=== PATIENT | male | born 1950 | race Caucasian/White ===

== ENCOUNTER 2017-04-20 14:06 | Outpatient (CLI) ==
[2014-04-15 15:42] VITALS: BMI 26.2
[2017-04-20 14:48] LABS: BASOPHILS # (AUTO) 0.1 K/uL (0-0.2); BASOPHILS % (AUTO) 0.6 % (0.0-3.0); EOSINOPHILS # (AUTO) 0.1 K/ul (0.0-0.7); EOSINOPHILS % (AUTO) 1.6 % (0.0-7.0); HEMATOCRIT 44.9 % (42.0-52.0); HEMOGLOBIN 16.3 g/dl (14.0-18.0); IMMATURE GRANULOCYTE % (AUTO) 0.4 % (0.0-5.0); LYMPHOCYTES # (AUTO) 2.1 K/uL (0.60-3.4); LYMPHOCYTES % (AUTO) 26.6 (10.0-50.0); MEAN CORPUSCULAR HEMOGLOBIN 32.7 pg (27.0-31.0); MEAN CORPUSCULAR HGB CONC 36.3 (31.8-35.4); MEAN CORPUSCULAR VOLUME 90.2 fl (80.0-94.0); MONOCYTES % (AUTO) 12.1 (0-10); NEUTROPHILS # (AUTO) 4.6 K/ul (2.0-6.9); NEUTROPHILS % (AUTO) 58.7; PLATELET COUNT 196 10^3/uL (140-440); RED BLOOD COUNT 4.98 10^6/ul (4.70-6.10); WHITE BLOOD COUNT 7.92 K/ul (4.2-10.2)
[2017-04-20 15:41] LABS: ALBUMIN 4.2 g/dL (3.4-5.0); ALBUMIN/GLOBULIN RATIO 1.17; ANION GAP 14.3; BILIRUBIN,TOTAL 0.83 mg/dL (0.00-1.20); BUN/CREATININE RATIO 13.68; CALCIUM 10.3 mg/dL (8.2-10.2); CHOL/HDL RATIO 5.9 (4.5-6.4); CREATININE 0.95 mg/dL (0.60-1.10); POTASSIUM 4.3 mmol/L (3.5-5.1); TOTAL PROTEIN 7.8 g/dL (5.8-8.1)
== END 2017-04-20 14:07 | disposition home or self-care (01) ==
LOC: LAB 14:06
PROVIDERS: ATTEND Internal Medicine
DX: E78.5 Hyperlipidemia, unspecified (principal); B19.20 Unspecified viral hepatitis C without hepatic coma; I10 Essential (primary) hypertension; C61 Malignant neoplasm of prostate; I73.9 Peripheral vascular disease, unspecified; Z79.899 Other long term (current) drug therapy; Z12.5 Encounter for screening for malignant neoplasm of prostate
CPT/HCPCS: 36415; 80053; 80061; 82607; 83036; 84443; 85025; 86803

== ENCOUNTER 2017-08-07 15:35 | Outpatient (CLI) ==
[2014-04-15 15:42] VITALS: BMI 26.2
== END 2017-08-07 15:36 | disposition home or self-care (01) ==
LOC: LAB 15:35
PROVIDERS: ATTEND Internal Medicine
DX: Z86.19 Personal history of other infectious and parasitic diseases (principal)
CPT/HCPCS: 36415; 87522

== ENCOUNTER 2024-03-25 17:42 | Observation (INO) ==
--- NOTE | 2024-03-25 18:57 | ED.PDOC ---
General ED Provider: Dr. BERNARD BORJAS MD Chief Complaint: Dizziness Stated Complaint: Patient is a 73-year-old male that reported to the emergency department with a 2-day history of dizziness. Patient stated that when he gets up or he looks a certain way he gets very dizzy. When asked if the patient feels like the room is spinning or he feels lightheaded he stated that he feels both. Patient stated that he has not lost consciousness or fallen however he does have to sit back down to get over his dizziness. Patient stated that he is never had this before. Patient states that he has no history of cardiovascular disease other than hypertension. Patient states that he does smoke half pack of cigarettes daily. Patient denies any recent head trauma. Patient denies any chest pain, shortness of breath, nausea, vomiting, diarrhea, headache, fever, sore throat, or any other acute symptoms not currently mentioned in HPI. Time Seen by Provider: 03/25/24 17:52 Mode of Arrival: Walk-In Information Source: Patient and Family Exam Limitations: No limitations Primary Care Provider: LUÍS BURR MD Nursing and Triage Documentation Reviewed and Agree: Yes Does Patient Take Opioids?: No Is Patient Opioid Naive?: No What is Opioid Naive?: *Opioid Naive implies the patient is not already taking opioids or not chronically receiving opioids on a daily basis. *PRN dosing is not "usually" associated with tolerance. *Patients are at higher risk of over-sedation and aspiration. Is Patient Opioid Tolerant?: No What is Opioid Tolerant?: *Opioid Tolerance implies less than the expected response to an opioid. *Acquired tolerance is defined by the patient taking 60mg of oral morphine daily (or equianalgesic dose of another opioid) for 1 week or more. *Often associated with chronic pain. *May take more than usual dose to achieve desired pain control. Review of Systems Review Of Systems Constitutional: Reports No symptoms Eyes: Reports No symptoms Ears, Nose, Mouth, Throat: Reports No symptoms Respiratory: Reports No symptoms (No interval changes) Cardiac: Reports Other (Dizziness) GI: Reports No symptoms : Reports No symptoms Musculoskeletal: Reports No symptoms Skin: Reports No symptoms Neurological: Reports No symptoms Endocrine: Reports No symptoms Hematologic/Lymphatic: Reports No symptoms All Other Systems: Reviewed and Negative [facility] Family History Mother Cardiac disease, Onset Age: 84 Social History Smoking and tobacco status: Current every day smoker Tobacco type: cigarettes Smoking packs per day: 0.5 Alcohol intake: current Alcohol intake frequency: a few times a month Substance use type: does not use Cathryn/adventism: BUDDHISM Special cathryn needs: No Agree to transfusion: Yes Adopted: No Caregiver/support person: No Foster care: No Household members: spouse Marital status: S SINGLE Lives independently: Yes Daycare: no daycare Number of children: 1 Number of grandchildren: 0 Highest education level completed: some college, no degree service: No FPC: No Current occupational status: retired History of recent travel: No Do you think of yourself as: straight/heterosexual Current gender identity: male Seatbelt use: always Drives intoxicated or rides with intoxicated fuel 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 Water heater temperature set < 120 degrees: Yes Working smoke detector in home: Yes Fire extinguisher in home: Yes Carbon monoxide detector in home: Yes Surgical History History of prostatectomy 2003 Z90.79 - Acquired absence of other genital organ(s) (ICD-10) Placement of stent in coronary artery 2013 1 stent Physical Exam Physical Exam Appearance: Reports Well-appearing, No pain distress and Well-nourished Ill-appearing: None Pain Distress: None Eyes: Reports FRANCINE, EOMI and Conjunctiva clear ENT: Reports Not Examined Neck: Supple Respiratory: Reports Airway patent, Breath sounds clear, Breath sounds equal and Respirations nonlabored Cardiovascular: Reports RRR, Pulses normal, No rub and No murmur GI/: Reports Soft, Nontender, No masses and Bowel sounds normal Musculoskeletal: Reports Normal strength, ROM intact and No edema Skin: Reports Warm, Dry and Normal color Neurological: Reports Sensation intact, Motor intact, Cranial nerves intact, Alert and Oriented Psychiatric: Reports Affect appropriate and Mood appropriate Course Course 03/25/24 19:05 03/25/24 19:05 Orders, Labs, Meds: Lab Review 03/25/24 03/25/24 19:02 19:05 WBC 5.87 RBC 4.58 L Hgb 14.5 Hct 42.9 MCV 93.7 MCH 31.7 H MCHC 33.8 RDW Coeff of Anabel 13.2 Plt Count 172 Immature Gran % (Auto) 0.5 Neut % (Auto) 62.8 Lymph % (Auto) 22.7 [place] % (Auto) 11.4 H Eos % (Auto) 2.4 Baso % (Auto) 0.2 Neut # (Auto) 3.7 Lymph # (Auto) 1.3 [place] # (Auto) 0.7 Eos # (Auto) 0.1 Baso # (Auto) 0.0 Immature Gran # (Auto) 0.0 Sodium 142.8 Potassium 4.24 Chloride 105.9 Carbon Dioxide 30.2 H Anion Gap 10.94 BUN 17.9 Creatinine 0.88 Estimated GFR (MDRD) 85.00 BUN/Creatinine Ratio 20.34 Glucose 120.2 H Lactic Acid 1.90 Calcium 10.40 H Total Bilirubin 0.37 AST 39.6 ALT 19.8 Alkaline Phosphatase 50.6 L Troponin I < 0.012 NT-Pro-B Natriuret Pep 167 Total Protein 7.70 Albumin 4.77 Globulin 2.93 Albumin/Globulin Ratio 1.62 Influ A Molecular Assay Negative by naat Influ B Molecular Assay Negative by naat SARS CoV-2 RNA Rapid JOHN Negative Orders Category Date Time Status EKG-(ED ONLY) Stat CARDIO 03/25/24 18:36 Completed ED PUMPER GAGER APPLIED .ONCE EMERGENCY 03/25/24 18:53 Active Orthostatic Vital Signs [ED ORTHOSTATIC VITAL SIGNS] . EMERGENCY 03/25/24 19:37 Active ONCE CBC W/ AUTO DIFF Stat LAB 03/25/24 19:05 Completed COMPREHENSIVE METABOLIC PANEL Stat LAB 03/25/24 19:05 Completed FLU A/B MOLECULAR Stat LAB 03/25/24 19:02 Completed LACTIC ACID Stat LAB 03/25/24 19:05 Completed NT-PROBNP(ED) Stat LAB 03/25/24 19:05 Completed SARS COV-2 RNA RAPID JOHN Stat LAB 03/25/24 19:02 Completed TROPONIN I Stat LAB 03/25/24 19:05 Completed CHEST, 1V AP ONLY Stat RADS 03/25/24 18:53 Taken Vital Signs: Temp Pulse Resp BP Pulse Ox 03/25/24 19:54 104/64 03/25/24 19:54 110/72 03/25/24 19:53 140/80 03/25/24 18:10 97.1 F L 66 20 112/60 98 ANTHONY Risk Score ANTHONY Risk Score: Risk Score Odds of by 30D 0 0.1 (0.1-0.2) 1 0.3 (0.2-0.3) 2 0.4 (0.3-0.5) 3 0.7 (0.6-0.9) 4 1.2 (1.0-1.5) 5 2.2 (1.9-2.6) 6 3.0 (2.5-3.6) 7 4.8 (3.8-6.1) Physician Progress Note: Patient is a 73-year-old male that reported to the emergency department with a 2-day history of dizziness. Patient stated that when he gets up or he looks a certain way he gets very dizzy. When asked if the patient feels like the room is spinning or he feels lightheaded he stated that he feels both. Patient stated that he has not lost consciousness or fallen however he does have to sit back down to get over his dizziness. Patient stated that he is never had this before. Patient states that he has no history of cardiovascular disease other than hypertension. Patient states that he does smoke half pack of cigarettes daily. Patient denies any recent head trauma. Patient denies any chest pain, shortness of breath, nausea, vomiting, diarrhea, headache, fever, sore throat, or any other acute symptoms not currently mentioned in HPI. -Will order EKG, chest x-ray, baseline labs and troponin. -EKG shows junctional rhythm with a rate of 54 bpm. Left axis deviation noted with a right incomplete bundle branch block. No acute ST elevations noted. This was interpreted by the ER physician. -Will order orthostatic vital signs. -Chest x-ray shows no acute cardiopulmonary disease. This was interpreted by the ER physician. -Troponin negative. CBC and CMP unremarkable. -Patient is orthostatic with blood pressure sitting 140/80, standing 110/72, laying down 104/64. -Due to patient's near syncopal episode we will contact hospitalist for admission. -(2009) spoke to hospitalist about the patient's near syncopal episode and current status. She has agreed to admit the patient for observation. Will place patient on telemetry. Discharge Plan Discharge Patient Disposition: PLACED OBSERVATION Discharge Problem: Near syncope Did you review [place] MEMBER OF TECHNICAL STAFF for ALL controlled substances?: Not Applicable ED Provider: BERNARD BORJAS Condition: Stable
[2024-03-25 19:13] LABS: BASOPHILS % (AUTO) 0.2 % (0.0-3.0); EOSINOPHILS # (AUTO) 0.1 K/ul (0.0-0.7); EOSINOPHILS % (AUTO) 2.4 % (0.0-7.0); HEMATOCRIT 42.9 % (42.0-52.0); HEMOGLOBIN 14.5 g/dl (14.0-18.0); IMMATURE GRANULOCYTE % (AUTO) 0.5 % (0.0-5.0); LYMPHOCYTES # (AUTO) 1.3 K/uL (0.60-3.4); LYMPHOCYTES % (AUTO) 22.7 (10.0-50.0); MEAN CORPUSCULAR HEMOGLOBIN 31.7 pg (27.0-31.0); MEAN CORPUSCULAR HGB CONC 33.8 (31.8-35.4); MEAN CORPUSCULAR VOLUME 93.7 fl (80.0-94.0); MONOCYTES # (AUTO) 0.7 K/uL (0.4-2.0); MONOCYTES % (AUTO) 11.4 (0-10); NEUTROPHILS # (AUTO) 3.7 K/ul (2.0-6.9); NEUTROPHILS % (AUTO) 62.8 % (42.2-75.2); PLATELET COUNT 172 10^3/uL (140-440); RDW COEFFICIENT OF VARIATION 13.2 % (11.6-14.8); RED BLOOD COUNT 4.58 10^6/ul (4.70-6.10); WHITE BLOOD COUNT 5.87 K/ul (4.2-10.2)
[2024-03-25 19:23] LABS: ALANINE AMINOTRANSFERASE 19.8 U/L (0-50); ALBUMIN 4.77 g/dL (3.5-5.0); ALKALINE PHOSPHATASE 50.6 U/L (56-119); ASPARTATE AMINO TRANSFERASE 39.6 U/L (17-59); BILIRUBIN,TOTAL 0.37 mg/dL (0.2-1.3); BLOOD UREA NITROGEN 17.9 mg/dL (9-20); CARBON DIOXIDE 30.2 mmol/L (22-30.0); CHLORIDE 105.9 mmol/L (98-107); CREATININE 0.88 mg/dL (0.60-1.10); GLUCOSE 120.2 mg/dL (74-106); POTASSIUM 4.24 mmol/L (3.5-5.1); SODIUM 142.8 mmol/L (134.5-145)
[2024-03-25 19:35] LABS: MOLECULAR FLU A NEGATIVE BY NAAT (NEGATIVE); MOLECULAR FLU B NEGATIVE BY NAAT (NEGATIVE); SARS COV-2 RNA RAPID NAAT NEGATIVE (NEGATIVE)
[2024-03-25 19:35] LABS: TROPONIN I < 0.012 ng/ml (0.0000-0.120)
[2024-03-25] MEDS ORDERED: TYLENOL PO PRN (20:34)
--- NOTE | 2024-03-25 20:52 | DI ---
EXAM: CHEST X-RAY ONE VIEW. HISTORY: Dizzy. COMPARISON: 04/28/2014 chest x-ray. FINDINGS: Heart is upper limits normal and pulmonary vascularity within normal limits. The lungs ar e satisfactory inflated with no active pulmonary infiltrate. Chronic appearing increased interstitia l lung markings. Tortuosity of the thoracic aorta. No change in the osseous structures. IMPRESSION: Evidence of chronic lung findings with no active cardiac or pulmonary process.
[2024-03-25] MEDS ORDERED: NON-FORMULARY MEDICATION (Melatonin 5 mg tablet) PO SCH (21:00)
[2024-03-25 22:11] VITALS: BMI 22.3
[2024-03-25] MEDS: LACTATED RINGERS 1,000 ML IV SCH (22:18)
[2024-03-25] MEDS: AMBIEN PO SCH ×2 (23:28→23:29)
[2024-03-25] MEDS: MELATONIN PO SCH (23:29)
[2024-03-25] MEDS: NICODERM 21 MG TD SCH (23:29)
[2024-03-26 05:18] LABS: BASOPHILS % (AUTO) 0.4 % (0.0-3.0); EOSINOPHILS # (AUTO) 0.2 K/ul (0.0-0.7); EOSINOPHILS % (AUTO) 4.2 % (0.0-7.0); HEMATOCRIT 36.8 % (42.0-52.0); HEMOGLOBIN 12.5 g/dl (14.0-18.0); IMMATURE GRANULOCYTE % (AUTO) 0.4 % (0.0-5.0); LYMPHOCYTES # (AUTO) 1.5 K/uL (0.60-3.4); MEAN CORPUSCULAR HEMOGLOBIN 31.3 pg (27.0-31.0); MEAN CORPUSCULAR VOLUME 92.2 fl (80.0-94.0); MONOCYTES # (AUTO) 0.5 K/uL (0.4-2.0); MONOCYTES % (AUTO) 10.1 (0-10); NEUTROPHILS # (AUTO) 2.9 K/ul (2.0-6.9); NEUTROPHILS % (AUTO) 55.9 % (42.2-75.2); PLATELET COUNT 143 10^3/uL (140-440); RDW COEFFICIENT OF VARIATION 13.2 % (11.6-14.8); RED BLOOD COUNT 3.99 10^6/ul (4.70-6.10); WHITE BLOOD COUNT 5.24 K/ul (4.2-10.2)
[2024-03-26 05:30] LABS: ALANINE AMINOTRANSFERASE 17.4 U/L (0-50); ALBUMIN 3.79 g/dL (3.5-5.0); ALKALINE PHOSPHATASE 47.2 U/L (56-119); ASPARTATE AMINO TRANSFERASE 25.2 U/L (17-59); BILIRUBIN,TOTAL 0.68 mg/dL (0.2-1.3); BLOOD UREA NITROGEN 12.7 mg/dL (9-20); CALCIUM 9.22 mg/dL (8.4-10.2); CARBON DIOXIDE 27.2 mmol/L (22-30.0); CHLORIDE 106.1 mmol/L (98-107); CREATININE 0.69 mg/dL (0.60-1.10); GLUCOSE 90.2 mg/dL (74-106); MAGNESIUM 1.9 mg/dL (1.6-2.3); POTASSIUM 3.25 mmol/L (3.5-5.1); SODIUM 139.3 mmol/L (134.5-145); TOTAL PROTEIN 6.26 g/dL (6.3-8.2)
[2024-03-26] MEDS: VITAMIN D PO SCH (08:42)
[2024-03-26] MEDS: MICRO-K CAP PO SCH (08:46)
[2024-03-26] MEDS: K-DUR PO ONE (08:47)
[2024-03-26] MEDS: ASPIRIN EC PO SCH (08:49)
[2024-03-26] MEDS: ANTIVERT PO PRN (09:11)
[2024-03-26] MEDS: NORVASC PO SCH (09:14)
[2024-03-26] MEDS: ZESTRIL PO SCH (09:14)
[2024-03-26] MEDS: ZETIA PO SCH (09:30)
[2024-03-26] MEDS: NON-FORMULARY MEDICATION (Azelastine 0.05 % drops) EACHEYE SCH (11:19)
--- NOTE | 2024-03-26 12:20 | ECHO2D ---
Date of Exam: 03/26/2024 Ordering Physician: DR. BURR Room #: 115 Reason for Echo: NEAR SYNCOPE, CHRONIC OBSTRUCTIVE PULMONARY DISEASE, PERIPHERAL ARTERY DISEASE, DIZZINESS M-Mode Normal Adult Results LV Dimensions Normal Adult Results AoV Opening excursions >1.6 >1.6 LVEDD-base- 3.5-5.8 5.4 Ao root dimensions 2.0-3.7 3.9 LVESD-base- 3.1-4.6 L. Atrium dimensions 1.9-3.8 4.7 Post. Wall thickness 0.8-1.1 1.3 IV septum (thickness) 0.7-1.2 1.3 Post. Wall excursion 0.72-1.3 NORMAL Septal motion NORMAL Systolic motion R. Ventricular cavity 1.5-2.0 3.5 LVEF 60% 70% Paradoxical septal wall motion NORMAL 2-D : 2-D M Mode Echocardiogram was performed using apical four chamber and left parasternal long and short axis views. ENLARGED LEFT ATRIAL AND RIGHT VENTRICLE CAVITIES. NORMAL LEFT VENTRICLE SIZE AND LEFT VENTRICULAR CONTRACTILITY. VALVES NORMAL. NO EFFUSION. NO THROMBUS. M-MODE: MV: NORMAL AV: CALCIFIC AORTIC VALVES - NO STENOSIS. TV: NORMAL PV: NORMAL CHAMBER SIZE: ENLARGED RIGHT VENTRICLE AND LEFT ATRIAL CAVITIES. WALL MOTION: NORMAL PERICARDIUM: NORMAL INTERPRETATION: 1. LEFT VENTRICULAR HYPERTROPHY WITH ENLARGED LEFT ATRIAL CAVITY. 2. ENLARGED RIGHT VENTRICLE CAVITY. 3. CALCIFIC AORTIC VALVES - NO STENOSIS. 4. NORMAL TRICUSPID VALVE, PULMONARY VALVE, AND MITRAL VALVES. 5. NORMAL LEFT VENTRICLE SIZE AND LEFT VENTRICULAR CONTRACTILITY. MTDD
--- NOTE | 2024-03-26 14:36 | US ---
EXAM: BILATERAL CAROTID DOPPLER 03/26/2024 HISTORY: Dizziness COMPARISON: None. FINDINGS: Duplex ultrasound including garcia scale, color and spectral Doppler has been performed. Ant egrade flow is present within the carotid and vertebral arteries. Bilateral atherosclerotic plaque m ost prominent at the carotid bulbs and proximal internal carotid arteries Peak systolic velocity right common carotid artery 78 cm/sec. Right internal carotid artery 92 cm/se c. The ratio is 1.2. Peak systolic velocity left common carotid artery 55 cm/sec. Left internal ca rotid artery 71 cm/sec. This ratio is 1.3. IMPRESSION: 1. Antegrade flow of the carotid and vertebral arteries 2. Bilateral atherosclerotic plaque. 3. No evidence of hemodynamically significant internal carotid stenosis.
--- NOTE | 2024-03-26 14:40 | PCM.SS ---
Provider Provider: ALVINO CULLEN PA-C, [facility] (Formerly [facility])ist Group Admission Date Admission Date: 03/25/24 Discharge Date Discharge Date: 03/26/24 Primary Care Physician Primary Care Physician: LUÍS LOERA MD Chief Complaint Reason For Visit: DIZZINESS FOR 2 DAYS, DOESNT FEEL RIGHT History of Present Illness History of Present Illness: Admitted 03/25/24 20:57, this 73 year old /WHITE/M with pmhx of hypertension, PAD, insomnia, CAD who presents for 2-3 day history of dizziness. He states it comes and goes, changes in intensity. Sometimes associated with change in position but not always. No vision changes, chest pain, sob. Has not had dizziness in the past. No recent medication changes. No unilateral weakness, trouble speaking, etc. Labs unremarkable. Vitals stable. Patient admitted to med surg for further monitoring. Patient noted to be mildly bradycardic on telemetry, otherwise no arrhythmias noted overnight. He does dip down as low as high 30s while sleeping. But has been regularly in 50s-60s while awake. Orthostatics negative this morning. No dizziness associated with standing. He had a moment of some transient dizziness which was correlated on telemetry, no bradycardia or anything noted at that time. Echo unremarkable. Carotid US did not show any significant stenosis. No clinical signs of a PE. No medications that would be contributing. Discussed with Dr. Venessa Loera, patients pcp/mva reactor operator head. Will discharge on holter monitor, he will order event monitor after if necessary. Will discharge on meclizine. Fall precautions discussed. Pt agrees to plan of care. Discussed potential of vestibular rehab as an option outpatient if needed. [facility] Surgical History History of prostatectomy 2003 Z90.79 - Acquired absence of other genital organ(s) (ICD-10) Placement of stent in coronary artery 2013 1 stent Family History Mother Cardiac disease, Onset Age: 84 Social History Smoking and tobacco status: Current every day smoker Tobacco type: cigarettes Smoking packs per day: 0.5 Alcohol intake: current Alcohol intake frequency: a few times a month Substance use type: does not use Cathryn/rastafari: JEWISH Special cathryn needs: No Agree to transfusion: Yes Adopted: No Caregiver/support person: No Foster care: No Household members: spouse Marital status: S SINGLE Lives independently: Yes Daycare: no daycare Number of children: 1 Number of grandchildren: 0 Highest education level completed: some college, no degree service: No halfway: No Current occupational status: retired History of recent travel: No Do you think of yourself as: straight/heterosexual Current gender identity: male Seatbelt use: always Drives intoxicated or rides with 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 Water heater temperature set < 120 degrees: Yes Working smoke detector in home: Yes Fire extinguisher in home: Yes Carbon monoxide detector in home: Yes Medications Mecications: Medications at Discharge (Home Meds & RX) aspirin 81 mg tablet,delayed release (Aspir-Low) 81 mg PO DAILY 04/07/14 multivitamin 1 cap PO DAILY 04/15/14 azelastine 0.05 % eye drops 1 drp BOTHEYES BID 10/25/22 fish, borage, flaxseed oils-omega 3,6,9 comb no.1 1,200 mg capsule ([place] 3-6-9) 2,400 cap PO BID 02/27/23 melatonin 5 mg tablet 5 mg PO QHS #30 tabs 02/27/23 zolpidem 10 mg tablet 12.5 mg (1.25 x 10 mg) PO BEDTIME #30 tabs 02/27/23 soluble corn fiber 5 gram oral powder packet (FiberCel) 1 g PO DAILY 05/04/23 hydrochlorothiazide 12.5 mg capsule 12.5 mg PO DAILY #90 caps 10/30/23 potassium chloride 10 mEq capsule,extended release 10 meq PO QDAY #30 caps 11/06/23 amlodipine 10 mg tablet See Rx Instructions .Route .COMPLEX #90 tabs 12/11/23 lisinopril 20 mg tablet See Rx Instructions .Route .COMPLEX #90 tabs 01/08/24 ezetimibe 10 mg tablet See Rx Instructions .Route .COMPLEX #45 tabs 02/12/24 cholecalciferol (vitamin D3) 125 mcg (5,000 unit) capsule 125 mcg PO QDAY 03/04/24 Allergies Allergies Allergy/AdvReac Type Severity Reaction Status Date / Time Penicillins Allergy Severe Anaphylaxis Verified 03/25/24 18:30 Review of Systems Constitutional: Denies Fever or Weakness Head: Reports Normocephalic and Atraumatic Eyes: Denies Blurred vision, Double-vision or Vision Changes Ears: Denies Pain or Drainage Throat: Denies Sore Throat or Difficulty Swallowing Cardiovascular: Denies Chest pain, Chest Pressure or Edema Respiratory: Denies Cough or Shortness of air Gastrointestinal: Denies Nausea, Vomiting, Diarrhea, Abdominal pain or Melena Genitourinary: Denies Dysuria or Hematuria Neurological: Reports Dizziness; Denies Headache, Syncope, Weakness, Speech difficulty or Problems with walking Physical Examination Appearance: Positive No Apparent Distress and Alert and Oriented x3 Head: Positive Normocephalic and Atraumatic Eyes: Positive FRANCINE Neck: Positive Supple, Non-Tender, Trachea Midline and No Carotid Bruits Heart: Positive RRR Respiratory: Positive Airway patent, Breath Sounds Clear, Bilaterally and Respirations Nonlabored GI/: Positive Soft, Nontender, Bowel sounds normal and No Distention Extremities: Negative Edema Neurological: Positive Cranial nerves intact, Alert and Oriented Psychiatric: Positive Normal Judgement, Normal Insight, Affect Appropriate and Mood Appropriate Vital Signs (Last 4 Hours) Vital Signs Last 4 Hours: Vital Signs: Last 4 Hours 03/26/24 11:00 03/26/24 12:00 03/26/24 13:00 Oxygen Delivery Method Room Air Room Air Telemetry Type Remote Telemetry Telemetry Monitoring Continues Telemetry Heart Rate 54 L EKG MI Interval 0.24 H EKG QRS Interval 0.06 Telemetry Strip Reading Sinus Facundo with 1st degree AVB. Labs This Visit Labs This Visit: Labs This Visit 03/25/24 03/25/24 03/26/24 19:02 19:05 05:02 WBC 5.87 5.24 RBC 4.58 L 3.99 L Hgb 14.5 12.5 L Hct 42.9 36.8 L D MCV 93.7 92.2 MCH 31.7 H 31.3 H MCHC 33.8 34.0 RDW Coeff of Anabel 13.2 13.2 Plt Count 172 143 Immature Gran % (Auto) 0.5 0.4 Neut % (Auto) 62.8 55.9 Lymph % (Auto) 22.7 29.0 [place] % (Auto) 11.4 H 10.1 H Eos % (Auto) 2.4 4.2 Baso % (Auto) 0.2 0.4 Neut # (Auto) 3.7 2.9 Lymph # (Auto) 1.3 1.5 [place] # (Auto) 0.7 0.5 Eos # (Auto) 0.1 0.2 Baso # (Auto) 0.0 0.0 Immature Gran # (Auto) 0.0 0.0 Sodium 142.8 139.3 Potassium 4.24 3.25 L Chloride 105.9 106.1 Carbon Dioxide 30.2 H 27.2 Anion Gap 10.94 9.25 BUN 17.9 12.7 Creatinine 0.88 0.69 Estimated GFR (MDRD) 85.00 112.00 BUN/Creatinine Ratio 20.34 18.40 Glucose 120.2 H 90.2 Lactic Acid 1.90 Calcium 10.40 H 9.22 Magnesium 1.90 Total Bilirubin 0.37 0.68 AST 39.6 25.2 ALT 19.8 17.4 Alkaline Phosphatase 50.6 L 47.2 L Troponin I < 0.012 NT-Pro-B Natriuret Pep 167 Total Protein 7.70 6.26 L Albumin 4.77 3.79 Globulin 2.93 2.47 Albumin/Globulin Ratio 1.62 1.53 Influ A Molecular Assay Negative by naat Influ B Molecular Assay Negative by naat SARS CoV-2 RNA Rapid JOHN Negative Imaging Imaging: EXAM: CHEST X-RAY ONE VIEW. HISTORY: Dizzy. COMPARISON: 04/28/2014 chest x-ray. FINDINGS: Heart is upper limits normal and pulmonary vascularity within normal limits. The lungs are satisfactory inflated with no active pulmonary infiltrate. Chronic appearing increased interstitial lung markings. Tortuosity of the thoracic aorta. No change in the osseous structures. IMPRESSION: Evidence of chronic lung findings with no active cardiac or pulmonary process. Date of Exam: 03/26/2024Ordering Physician: DR. LOERA Room #: 115 Reason for Echo: NEAR SYNCOPE, CHRONIC OBSTRUCTIVE PULMONARY DISEASE, PERIPHERAL ARTERY DISEASE, DIZZINESS M-Mode Normal Adult Results LV Dimensions Normal Adult Results AoV Opening excursions >1.6 >1.6 LVEDD-base- 3.5-5.8 5.4 Ao root dimensions 2.0-3.7 3.9 LVESD-base- 3.1-4.6 L. Atrium dimensions 1.9-3.8 4.7 Post. Wall thickness 0.8-1.1 1.3 IV septum (thickness) 0.7-1.2 1.3 Post. Wall excursion 0.72-1.3 NORMAL Septal motion NORMAL Systolic motion R. Ventricular cavity 1.5-2.0 3.5 LVEF 60% 70% Paradoxical septal wall motion NORMAL 2-D : 2-D M Mode Echocardiogram was performed using apical four chamber and left parasternal long and short axis views. ENLARGED LEFT ATRIAL AND RIGHT VENTRICLE CAVITIES. NORMAL LEFT VENTRICLE SIZE AND LEFT VENTRICULAR CONTRACTILITY. VALVES NORMAL. NO EFFUSION. NO THROMBUS. M-MODE: MV: NORMAL AV: CALCIFIC AORTIC VALVES - NO STENOSIS. TV: NORMAL PV: NORMAL CHAMBER SIZE: ENLARGED RIGHT VENTRICLE AND LEFT ATRIAL CAVITIES. WALL MOTION: NORMAL PERICARDIUM: NORMAL INTERPRETATION: 1. LEFT VENTRICULAR HYPERTROPHY WITH ENLARGED LEFT ATRIAL CAVITY. 2. ENLARGED RIGHT VENTRICLE CAVITY. 3. CALCIFIC AORTIC VALVES - NO STENOSIS. 4. NORMAL TRICUSPID VALVE, PULMONARY VALVE, AND MITRAL VALVES. 5. NORMAL LEFT VENTRICLE SIZE AND LEFT VENTRICULAR CONTRACTILITY. EXAM: BILATERAL CAROTID DOPPLER 03/26/2024 HISTORY: Dizziness COMPARISON: None. FINDINGS: Duplex ultrasound including garcia scale, color and spectral Doppler has been performed. Antegrade flow is present within the carotid and vertebral arteries. Bilateral atherosclerotic plaque most prominent at the carotid bulbs and proximal internal carotid arteries Peak systolic velocity right common carotid artery 78 cm/sec. Right internal carotid artery 92 cm/sec. The ratio is 1.2. Peak systolic velocity left common carotid artery 55 cm/sec. Left internal carotid artery 71 cm/sec. This ratio is 1.3. IMPRESSION: 1. Antegrade flow of the carotid and vertebral arteries 2. Bilateral atherosclerotic plaque. 3. No evidence of hemodynamically significant internal carotid stenosis. Review Review Statement: I have independently reviewed and interpreted the labs/EKGs/imaging that were ordered by the ER provider. I have reviewed all outside records that are available currently in our EMR including imaging/notes/labs from previous visits. Plan Reccomendations/Plan: 1. Vertigo - Meclizine ordered prn. Echo and Carotid US ordered. Telemetry. LR at 75 ml/hr. Repeat orthostats. 2. Hypertension - Cont home meds except hctz 3. Insomnia - Cont home meds 4. PAD - Cont home meds 5. Hyperlipidemia - Cont home meds Patient noted to be mildly bradycardic on telemetry, otherwise no arrhythmias noted overnight. He does dip down as low as high 30s while sleeping. But has been regularly in 50s-60s while awake. Orthostatics negative this morning. No dizziness associated with standing. He had a moment of some transient dizziness which was correlated on telemetry, no bradycardia or anything noted at that time. Echo unremarkable. Carotid US did not show any significant stenosis. No clinical signs of a PE. No medications that would be contributing. Discussed with Dr. Venessa Loera, patients pcp/mva reactor operator head. Will discharge on holter monitor, he will order event monitor after if necessary. Will discharge on meclizine. Fall precautions discussed. Pt agrees to plan of care. Discussed potential of vestibular rehab as an option outpatient if needed. 1. Vertigo - improved 2. Hypertension 3. Insomnia 4. PAD 5. Hyperlipidemia Additional Planning: Case discussed with ED Physician, Dr. [place]. [facility]annin minutes spent discussing advance care planning. Smoking Cessation: 3 minutes spent discussing smoking cessation. Admit to: Obs Discussed Plan of Care with Dr. Bryce Loera. Review With Patient Reviewed with Patient and Family: Patient and family have been counseled on condition and care plan and have no immediate questions. I have personally discussed and reviewed the patient's visit/current labs/imaging/decision making with Dr. Bryce Loera, my supervising attending. Total number of minutes spent with patient [85] min. More than 50% of the time spent with this patient was devoted to counseling and coordination of care. Time of Admission:03/25/24 20:57 Time of Discharge: 03/26/24 1030 Discharge Plan Discharge Discharge Orders: Discharge Patient (ONCE); Ordered 03/26/24 Ordered By: ALVINO CULLEN Activity Restrictions/Additional Instructions: DISCHARGE TO HOME F/U WITH DR. LOERA NEXT WEEK FOR HOLTER RESULTS PHARMACY: [facility] MECLIZINE NEEDED FOR DIZZINESS DIET: HEART HEALTHY ACTIVITY: TOLERATED, FALL PRECAUTIONS Patient Disposition: HOME SELF-CARE Prescriptions: New meclizine 25 mg tablet 25 mg PO TID PRN (Reason: dizziness) Qty: 21 0RF Continued aspirin [Aspir-Low] 81 MG tablet,delayed release (DR/EC) 81 mg PO DAILY hydrochlorothiazide 12.5 mg capsule 12.5 mg PO DAILY Qty: 90 1RF potassium chloride 10 mEq capsule, extended release 10 meq PO QDAY Qty: 30 3RF amlodipine 10 mg tablet See Rx Instructions .ROUTE .COMPLEX Qty: 90 1RF Dose Instruction: TAKE 1 TABLET BY MOUTH DAILY Rx Instructions: TAKE 1 TABLET BY MOUTH DAILY lisinopril 20 mg tablet See Rx Instructions .ROUTE .COMPLEX Qty: 90 1RF Dose Instruction: TAKE 1 TABLET BY MOUTH DAILY Rx Instructions: TAKE 1 TABLET BY MOUTH DAILY ezetimibe 10 mg tablet See Rx Instructions .ROUTE .COMPLEX Qty: 45 2RF Dose Instruction: TAKE 1 TABLET BY MOUTH EVERY OTHER DAY Rx Instructions: TAKE 1 TABLET BY MOUTH EVERY OTHER DAY multivitamin 1 CAP capsule 1 cap PO DAILY [place] 3-6-9 1,200 mg capsule 2,400 cap PO BID azelastine 0.05 % drops 1 drp BOTHEYES BID cholecalciferol (vitamin D3) 125 mcg (5,000 unit) capsule 125 mcg PO QDAY zolpidem 10 mg tablet 12.5 mg PO BEDTIME Qty: 30 2RF Rx Instructions: Prescribed by Dr. Estrella. melatonin 5 mg tablet 5 mg PO QHS Qty: 30 0RF FiberCel 5 gram powder in packet 1 g PO DAILY Did you review [place]LO[place] for ALL controlled substances?: Not Applicable Discussed opioids are addictive and Narcan is available by prescription or from pharmacy.: No Condition: Stable Referrals: LUÍS LOERA MD [Primary Care Provider] - 04/03/24 2:20 pm
[2024-03-26 14:41] VITALS: BP 128/73; PULSE 66; RESP 20; TEMP 98.2
== END 2024-03-26 18:00 | disposition home or self-care (01) ==
LOC: ED 17:42 → MEDSURG B 17:42
PROVIDERS: ADMIT Hospitalist; ATTEND Physician Assistant
DX: Z20.822 Contact with and (suspected) exposure to COVID-19; R55 Syncope and collapse; E78.5 Hyperlipidemia, unspecified; G47.00 Insomnia, unspecified; R42 Dizziness and giddiness; Z51.81 Encounter for therapeutic drug level monitoring; I25.10 Atherosclerotic heart disease of native coronary artery without angina pectoris; I10 Essential (primary) hypertension; I73.9 Peripheral vascular disease, unspecified; Z79.899 Other long term (current) drug therapy; F17.210 Nicotine dependence, cigarettes, uncomplicated